=== PATIENT | female | born 1975 ===

== ENCOUNTER 2017-12-13 05:40 | Inpatient (IN) ==
[2017-12-13] MEDS ORDERED: ceFAZolin 1,000 MG VIAL ONE (05:58)
[2017-12-13] MEDS ORDERED: VANCOMYCIN 1,000 MG VIAL ONE (05:58)
[2017-12-13] MEDS ORDERED: CLINDAMYCIN INJ 900 MG in PREMIX 1 EACH IV ONE (06:00)
[2017-12-13] MEDS ORDERED: DIAZEPAM 5 MG TABLET PO ONE (06:00)
[2017-12-13] MEDS ORDERED: IPRATROPIUM 500 MCG/2.5 ML NEB RESP TX ONE (06:00)
[2017-12-13] MEDS ORDERED: VANCOMYCIN INJ 1,000 MG in SODIUM CHLORIDE 0.9% 250 ML IV ONE (06:00)
[2017-12-13] MEDS ORDERED: ALBUTEROL 2.5 MG/3 ML NEB RESP TX ONE (06:00)
[2017-12-13] MEDS ORDERED: FAMOTIDINE 20 MG TABLET PO ONE (06:00)
[2017-12-13] MEDS ORDERED: BUPIVACAINE SPINAL 0.75% 2 ML AMP SPINAL ONE (06:18)
[2017-12-13] MEDS ORDERED: TRANEXAMIC ACID 1,000 MG/10 ML VIAL IV ONE ×2 (06:19→06:45)
[2017-12-13] MEDS ORDERED: CLINDAMYCIN INJ 50 ML IV ONE (06:40)
[2017-12-13] MEDS: LACTATED RINGERS 1,000 ML IV SCH ×2 (06:42→11:09)
[2017-12-13] MEDS ORDERED: MORPHINE 4 MG/1 ML VIAL IV PRN (07:00)
[2017-12-13] MEDS ORDERED: ONDANSETRON 4 MG/2 ML VIAL IV PRN ×2 (07:03→09:26)
[2017-12-13] MEDS ORDERED: diphenhydrAMINE CAP 25 MG CAPSULE PO PRN (07:03)
[2017-12-13] MEDS ORDERED: TEMAZEPAM 7.5 MG CAPSULE PO PRN (07:03)
[2017-12-13] MEDS ORDERED: LACTULOSE 20 GM/30 ML UDCUP PO PRN (07:03)
[2017-12-13] MEDS ORDERED: PROMETHAZINE 25 MG/1 ML VIAL IM PRN (07:03)
[2017-12-13] MEDS ORDERED: BISACODYL 10 MG SUPP RECTAL PRN (07:03)
[2017-12-13] MEDS ORDERED: MAGNESIUM HYDROXIDE SUSP 30 ML UDCUP PO PRN (07:03)
[2017-12-13] MEDS ORDERED: NALOXONE 0.4 MG/ML VIAL IV PRN (07:03)
[2017-12-13] MEDS ORDERED: NITROGLYCERIN SL 0.4 MG TABLET SL PRN (07:07)
[2017-12-13] MEDS ORDERED: ROPIVACAINE 0.5% 30 ML VIAL ONE (08:55)
[2017-12-13] MEDS ORDERED: SEVOFLURANE 1 UNIT/15 MINUTE INH ONE (09:18)
[2017-12-13] MEDS ORDERED: fentaNYL 100 MCG/2 ML VIAL ONE ×2 (09:18→09:19)
[2017-12-13] MEDS ORDERED: PROPOFOL 200 MG/20 ML VIAL IV ONE (09:18)
[2017-12-13] MEDS ORDERED: MIDAZOLAM 2 MG/2 ML VIAL ONE (09:18)
[2017-12-13] MEDS ORDERED: ONDANSETRON 4 MG/2 ML VIAL ONE (09:19)
[2017-12-13] MEDS ORDERED: ACETAMINOPHEN 1,000 MG/100 ML VIAL IV ONE (09:19)
[2017-12-13] MEDS ORDERED: methylPREDNISolone SOD SUC 125 MG/2 ML VIAL ONE (09:19)
[2017-12-13] MEDS ORDERED: HYDROmorphone 2 MG/1 ML VIAL IV PRN (09:26)
[2017-12-13] MEDS ORDERED: MEPERIDINE 25 MG/1 ML VIAL IV PRN (09:26)
[2017-12-13] MEDS: MORPHINE PCA 30 MG/30 ML SYRINGE IV SCH (09:46)
[2017-12-13] MEDS: FOLIC ACID 1 MG TABLET PO SCH (10:22)
[2017-12-13] MEDS: MELOXICAM 7.5 MG TABLET PO SCH (10:23)
[2017-12-13] MEDS: LUBIPROSTONE 24 MCG CAPSULE PO SCH ×2 (10:23→20:26)
[2017-12-13] MEDS: TAMSULOSIN 0.4 MG CAPSULE PO SCH (10:23)
[2017-12-13] MEDS: DOCUSATE SODIUM 100 MG CAPSULE PO SCH ×2 (10:23→20:26)
[2017-12-13] MEDS: HYDROXYCHLOROQUINE 200 MG TABLET PO SCH (10:23)
[2017-12-13] MEDS: predniSONE 5 MG TABLET PO SCH (10:24)
[2017-12-13] MEDS: PANTOPRAZOLE 40 MG TABLET PO SCH (10:25)
[2017-12-13] MEDS: amLODIPine 10 MG TABLET PO SCH (10:58)
[2017-12-13] MEDS: CARVEDILOL 3.125 MG TABLET PO SCH ×2 (10:58→20:26)
[2017-12-13] MEDS: LISINOPRIL 10 MG TABLET PO SCH (10:58)
[2017-12-13] MEDS: CLINDAMYCIN INJ 900 MG in PREMIX 1 EACH IV SCH ×2 (11:11→18:08)
[2017-12-13 12:26] LABS: Basophils % 0.2 % (0.0-0.8); Eosinophils % 0.1 % (0.00-10.9); Hematocrit 36.5 VOL% (35.7-47.0); Hemoglobin 11.7 GM/DL (12.0-16.0); Immature Granulocytes % 0.4 %; Immature Granulocytes Absolute 0.05 #; Lymphocytes # 0.6 10*3/uL (1.4-4.0); Lymphocytes % 4.5 % (21.3-54.2); Mean Corpuscular HGB Conc 32.1 GM/DL (32-36); Mean Corpuscular Hemoglobin 28 PG (27-34); Mean Corpuscular Volume 88.2 FL (87-102); Monocytes # 0.2 10*3/uL (0.11-0.8); Monocytes % 1.1 % (1.7-12.7); Neutrophils # 12.7 10*3/uL (1.4-7.4); Neutrophils % 93.7 % (38.7-73.9); Platelet Count 374 T/CUMM (130-400); Red Blood Count 4.14 MC/CUMM (3.8-5.5); Red Cell Distribution Width 14.4 % (9.3-17.3); White Blood Count 13.6 T/CUMM (4-12)
[2017-12-13 12:45] LABS: Band Neutrophils 2 % (0-10); Giant Platelets Few; Hypochromasia 1+; Lymphocytes 3 % (20-55); Ovalocytes Slight; Platelet Estimate Adequate; Segmented Neutrophils 95 % (50-85); Total Cells Counted 100
[2017-12-13 12:53] LABS: Calcium 7.8 MG/DL (8.5-10.1); Osmolality,Calculated 277.4 MOS/KG (273-304); Potassium 3.5 MMOL/L (3.5-5.1)
[2017-12-13] MEDS: FONDAPARINUX 2.5 MG/0.5 ML SYRINGE SUBCUT SCH (18:09)
[2017-12-14] MEDS: MORPHINE PCA 30 MG/30 ML SYRINGE IV SCH ×2 (00:30→10:47)
[2017-12-14 04:39] LABS: Basophils % 0.2 % (0.0-0.8); Hematocrit 30.6 VOL% (35.7-47.0); Hemoglobin 9.9 GM/DL (12.0-16.0); Immature Granulocytes % 0.6 %; Immature Granulocytes Absolute 0.09 #; Lymphocytes % 6.6 % (21.3-54.2); Mean Corpuscular HGB Conc 32.4 GM/DL (32-36); Mean Corpuscular Hemoglobin 28 PG (27-34); Monocytes # 1.3 10*3/uL (0.11-0.8); Monocytes % 9.1 % (1.7-12.7); Neutrophils # 12.1 10*3/uL (1.4-7.4); Neutrophils % 83.5 % (38.7-73.9); Platelet Count 372 T/CUMM (130-400); Red Blood Count 3.56 MC/CUMM (3.8-5.5); Red Cell Distribution Width 14.6 % (9.3-17.3); White Blood Count 14.5 T/CUMM (4-12)
[2017-12-14 05:07] LABS: Osmolality,Calculated 281.3 MOS/KG (273-304); Potassium 3.8 MMOL/L (3.5-5.1)
[2017-12-14] MEDS: CARVEDILOL 3.125 MG TABLET PO SCH ×2 (08:44→20:42)
[2017-12-14] MEDS: DOCUSATE SODIUM 100 MG CAPSULE PO SCH ×2 (08:44→20:42)
[2017-12-14] MEDS: MELOXICAM 7.5 MG TABLET PO SCH (08:44)
[2017-12-14] MEDS: HYDROXYCHLOROQUINE 200 MG TABLET PO SCH (08:44)
[2017-12-14] MEDS: PANTOPRAZOLE 40 MG TABLET PO SCH (08:44)
[2017-12-14] MEDS: FOLIC ACID 1 MG TABLET PO SCH (08:44)
[2017-12-14] MEDS: LUBIPROSTONE 24 MCG CAPSULE PO SCH ×2 (08:44→20:42)
[2017-12-14] MEDS: amLODIPine 10 MG TABLET PO SCH (08:44)
[2017-12-14] MEDS: predniSONE 5 MG TABLET PO SCH (08:44)
[2017-12-14] MEDS: TAMSULOSIN 0.4 MG CAPSULE PO SCH (08:44)
[2017-12-14] MEDS: LISINOPRIL 10 MG TABLET PO SCH (08:46)
[2017-12-14] MEDS: LACTATED RINGERS 1,000 ML IV SCH ×3 (08:47→09:49)
[2017-12-14] MEDS: FONDAPARINUX 2.5 MG/0.5 ML SYRINGE SUBCUT SCH (18:08)
[2017-12-15] MEDS: MORPHINE PCA 30 MG/30 ML SYRINGE IV SCH (00:19)
[2017-12-15 05:10] LABS: Basophils % 0.3 % (0.0-0.8); Eosinophils # 0.1 10*3/uL (0.0-0.87); Eosinophils % 0.8 % (0.00-10.9); Hematocrit 29.3 VOL% (35.7-47.0); Hemoglobin 9.4 GM/DL (12.0-16.0); Immature Granulocytes % 0.7 %; Immature Granulocytes Absolute 0.07 #; Lymphocytes # 1.7 10*3/uL (1.4-4.0); Lymphocytes % 17.9 % (21.3-54.2); Mean Corpuscular HGB Conc 32.1 GM/DL (32-36); Mean Corpuscular Hemoglobin 28 PG (27-34); Mean Corpuscular Volume 88.5 FL (87-102); Mean Platelet Volume 9.3 FL (9.6-12.0); Monocytes # 0.9 10*3/uL (0.11-0.8); Monocytes % 9.5 % (1.7-12.7); Neutrophils # 6.7 10*3/uL (1.4-7.4); Neutrophils % 70.8 % (38.7-73.9); Platelet Count 303 T/CUMM (130-400); Red Blood Count 3.31 MC/CUMM (3.8-5.5); Red Cell Distribution Width 14.7 % (9.3-17.3); White Blood Count 9.5 T/CUMM (4-12)
[2017-12-15] MEDS: DOCUSATE SODIUM 100 MG CAPSULE PO SCH ×2 (11:10→20:54)
[2017-12-15] MEDS: predniSONE 5 MG TABLET PO SCH (11:10)
[2017-12-15] MEDS: CARVEDILOL 3.125 MG TABLET PO SCH ×2 (11:11→20:54)
[2017-12-15] MEDS: PANTOPRAZOLE 40 MG TABLET PO SCH (11:11)
[2017-12-15] MEDS: MELOXICAM 7.5 MG TABLET PO SCH (11:11)
[2017-12-15] MEDS: LISINOPRIL 10 MG TABLET PO SCH (11:11)
[2017-12-15] MEDS: amLODIPine 10 MG TABLET PO SCH (11:11)
[2017-12-15] MEDS: LUBIPROSTONE 24 MCG CAPSULE PO SCH ×2 (11:11→20:54)
[2017-12-15] MEDS: FOLIC ACID 1 MG TABLET PO SCH (11:11)
[2017-12-15] MEDS: TAMSULOSIN 0.4 MG CAPSULE PO SCH (11:26)
[2017-12-15] MEDS: HYDROXYCHLOROQUINE 200 MG TABLET PO SCH (11:26)
[2017-12-15] MEDS: LACTATED RINGERS 1,000 ML IV SCH (12:48)
[2017-12-15] MEDS: MORPHINE 4 MG/1 ML VIAL IV PRN (22:51)
[2017-12-16] MEDS: LISINOPRIL 10 MG TABLET PO SCH (09:10)
[2017-12-16] MEDS: MELOXICAM 7.5 MG TABLET PO SCH (09:10)
[2017-12-16] MEDS: PANTOPRAZOLE 40 MG TABLET PO SCH (09:10)
[2017-12-16] MEDS: TAMSULOSIN 0.4 MG CAPSULE PO SCH (09:10)
[2017-12-16] MEDS: CARVEDILOL 3.125 MG TABLET PO SCH ×2 (09:10→20:12)
[2017-12-16] MEDS: LUBIPROSTONE 24 MCG CAPSULE PO SCH ×2 (09:10→20:12)
[2017-12-16] MEDS: FOLIC ACID 1 MG TABLET PO SCH (09:10)
[2017-12-16] MEDS: DOCUSATE SODIUM 100 MG CAPSULE PO SCH ×2 (09:10→20:12)
[2017-12-16] MEDS: predniSONE 5 MG TABLET PO SCH (09:11)
[2017-12-16] MEDS: HYDROXYCHLOROQUINE 200 MG TABLET PO SCH (09:11)
[2017-12-16] MEDS: CIPROFLOXACIN 500 MG TABLET PO SCH ×2 (09:36→20:12)
[2017-12-16] MEDS: ASPIRIN EC 325 MG TABLET PO SCH (09:36)
[2017-12-16] MEDS: amLODIPine 10 MG TABLET PO SCH (09:36)
[2017-12-16] MEDS: MORPHINE 4 MG/1 ML VIAL IV PRN (20:10)
[2017-12-17] MEDS: DOCUSATE SODIUM 100 MG CAPSULE PO SCH (09:54)
[2017-12-17] MEDS: FOLIC ACID 1 MG TABLET PO SCH (09:54)
[2017-12-17] MEDS: HYDROXYCHLOROQUINE 200 MG TABLET PO SCH (09:54)
[2017-12-17] MEDS: CIPROFLOXACIN 500 MG TABLET PO SCH (09:55)
[2017-12-17] MEDS: ASPIRIN EC 325 MG TABLET PO SCH (09:55)
[2017-12-17] MEDS: amLODIPine 10 MG TABLET PO SCH (09:55)
[2017-12-17] MEDS: CARVEDILOL 3.125 MG TABLET PO SCH (09:55)
[2017-12-17] MEDS: LISINOPRIL 10 MG TABLET PO SCH (09:55)
[2017-12-17] MEDS: PANTOPRAZOLE 40 MG TABLET PO SCH (09:55)
[2017-12-17] MEDS: LUBIPROSTONE 24 MCG CAPSULE PO SCH (09:55)
[2017-12-17] MEDS: predniSONE 5 MG TABLET PO SCH (09:55)
[2017-12-17] MEDS: TAMSULOSIN 0.4 MG CAPSULE PO SCH (09:56)
[2017-12-17] MEDS: MELOXICAM 7.5 MG TABLET PO SCH (10:03)
[2017-12-17 11:24] VITALS: BP 150/67
== END 2017-12-17 12:57 | disposition home health service (06) | DRG 470 ==
LOC: N.SDSINP 05:40 → N.OR 05:40 → N.SDSINP 07:03 → N.3E 10:01
PROVIDERS: ADMIT Orthopaedic Surgery; ATTEND Orthopaedic Surgery